=== PATIENT | female | born 1950 | race Caucasian/White ===

== ENCOUNTER → 2018-10-08 | Outpatient (CLI) | payer MEDICARE, OTHER ==
[~2018-10-08] MED LIST: HOLD METFORMIN - RECEIVED CONTRAST 20 ML VIAL IV SCH; IOHEXOL 350 MG/ML 150 ML (OMNIPAQUE 350) VIAL IV ONE
[2018-10-08 09:04] LABS: ALANINE AMINOTRANSFERASE 14 U/L (0-55); ALBUMIN 4.3 GM/DL (3.2-4.5); ALKALINE PHOSPHATASE 93 U/L (40-136); BILIRUBIN,TOTAL 0.5 MG/DL (0.1-1.0); BUN/CREATININE RATIO 15; CALCIUM 9.3 MG/DL (8.5-10.1); CARBON DIOXIDE 22 MMOL/L (21-32); CHLORIDE 104 MMOL/L (98-107); CREATININE SERUM 0.71 MG/DL (0.60-1.30); GFR ESTIMATED > 60; GLUCOSE 165 MG/DL (70-105); POTASSIUM 3.8 MMOL/L (3.6-5.0); SODIUM 139 MMOL/L (135-145); TOTAL PROTEIN 7.3 GM/DL (6.4-8.2)
--- NOTE | 2018-10-08 09:38 | Diagnostic Imaging Report ---
PROCEDURE: CT abdomen and pelvis without contrast. TECHNIQUE: Multiple contiguous axial images were obtained through the abdomen and pelvis without the use of intravenous contrast. Auto Exposure Controls were utilized during the CT exam to meet ALARA standards for radiation dose reduction. INDICATION: Abnormal pelvis x-rays. The patient's abnormal pelvis x-rays and report are not available for direct comparison. The lung bases are clear. The liver is unremarkable. There is a large stone within the gallbladder. No biliary duct dilatation is seen. Pancreas and spleen are unremarkable. No adrenal mass is detected. No renal calculi or hydronephrosis is identified. The aorta is calcified but not aneurysmal. Small and large bowel loops appear to be normal in caliber. No obstruction is seen. There is diverticulosis of the sigmoid colon but no evidence of acute diverticulitis. There is no ascites. Bladder and uterus are unremarkable. No central, retroperitoneal or mesenteric lymphadenopathy is seen. No definite inguinal or iliac lymphadenopathy is identified. The bony structures appear nonacute. IMPRESSION: 1. Cholelithiasis. 2. Uncomplicated sigmoid diverticulosis. 3. No other significant abnormality is seen. Please note that the patient's outside pelvis x-ray and report are not available for comparison. Dictated by: Dictated on workstation # [id number]
--- NOTE | 2018-10-08 10:13 | Diagnostic Imaging Report ---
INDICATION: Abnormal chest x-ray and constipation. TECHNIQUE: Axial imaging through the chest, abdomen and pelvis was performed after the administration of intravenous contrast. CT angiography protocol was utilized for the chest portion of the exam. Multiplanar, 3-D and MIP reformations were also performed. COMPARISON: No prior imaging is available for comparison. Specifically, the patient's abnormal chest x-ray is not available for comparison. CT chest: FINDINGS: Evaluation of the pulmonary arterial system is without evidence of thromboembolism. No filling defects are seen within central, lobar or segmental branches. Thoracic aorta is normal caliber. No dissection is identified. No axillary lymphadenopathy is identified. No definite hilar or mediastinal lymphadenopathy is detected. No pericardial or pleural fluid is identified. Pulmonary parenchymal evaluation demonstrates central airways to be patent. Lungs are clear. No infiltrate, nodule or mass is detected. IMPRESSION: Unremarkable CT angiogram of the chest. CT abdomen and pelvis: FINDINGS: The liver demonstrates some mild generalized low density suggestive of hepatic steatosis. No discrete liver mass is identified. There is a large stone within the gallbladder. No biliary ductal dilatation is seen. The pancreas and spleen are unremarkable. No adrenal mass is detected. The kidneys are unremarkable. Aorta is nonaneurysmal. No central retroperitoneal or mesenteric lymphadenopathy is seen. Small and large bowel loops are normal caliber. There is diverticulosis of the sigmoid colon but no evidence of acute diverticulitis. Partially filled urinary bladder is unremarkable. Uterus is unremarkable. No pelvic lymphadenopathy is seen. IMPRESSION: 1. Hepatic steatosis. 2. Cholelithiasis. 3. Uncomplicated sigmoid diverticulosis. 4. No acute feature is identified. Dictated by: Dictated on workstation # [id number]
== END ==
LOC: RAD 08:27
PROVIDERS: ATTEND Nurse Practitioner Family
DX: K76.0 Fatty (change of) liver, not elsewhere classified (principal); K80.20 Calculus of gallbladder without cholecystitis without obstruction; K57.30 Diverticulosis of large intestine without perforation or abscess without bleeding; K59.00 Constipation, unspecified; R91.8 Other nonspecific abnormal finding of lung field
CPT/HCPCS: 36415; 71275; 74176; 74177; 80053